=== PATIENT | female | born 1950 | race Caucasian/White ===

== ENCOUNTER → 2021-03-26 14:11 | Outpatient (BNVA) | payer MEDICARE, OTHER, SELFPAY | PROVIDERS: PCP Family Medicine; Visit Provider Nurse Practitioner Family | DX: M79.2 Neuralgia and neuritis, unspecified (principal); M79.605 Pain in left leg; M47.816 Spondylosis without myelopathy or radiculopathy, lumbar region | CPT/HCPCS: 99202 ==

== ENCOUNTER 2021-05-21 09:00 | Outpatient (REF) | payer MEDICARE, OTHER, SELFPAY ==
--- NOTE | 2021-05-21 09:06 | EMG_ITS ---
Left tibial and peroneal motor studies were performed. Left sural and superficial sensory studies were performed. Tibial H-reflex was obtained. Paraspinal muscles were tested with a needle. 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 There was no evidence of acute or active radiculopathy. MD GIUSEPPE Goldberg/[facility] / [id number]
== END 2021-05-21 09:01 | disposition home or self-care (01) ==
LOC: HO.NEURO 09:00
PROVIDERS: Visit Provider Nurse Practitioner Family
DX: M79.2 Neuralgia and neuritis, unspecified (principal); M79.605 Pain in left leg
CPT/HCPCS: 95886; 95909

== ENCOUNTER → 2021-05-29 14:28 | Outpatient (BNVA) | payer MEDICARE, OTHER, SELFPAY | PROVIDERS: PCP Family Medicine; Visit Provider Nurse Practitioner Family | DX: Z13.89 Encounter for screening for other disorder (principal) | CPT/HCPCS: Q3014 ==

== ENCOUNTER → 2021-06-29 14:33 | Outpatient (BNVA) | payer MEDICARE, OTHER, SELFPAY | PROVIDERS: PCP Family Medicine; Visit Provider Nurse Practitioner Family | DX: M48.062 Spinal stenosis, lumbar region with neurogenic claudication (principal); M54.16 Radiculopathy, lumbar region; M47.816 Spondylosis without myelopathy or radiculopathy, lumbar region | CPT/HCPCS: 99212 ==

== ENCOUNTER 2021-10-21 06:00 | Outpatient (REF) | payer MEDICARE, OTHER, SELFPAY ==
--- NOTE | ~2021-10-21 | FL_ITS ---
EXAMINATION: XR FLUOROSCOPY WITH IMAGES CLINICAL INFORMATION: Spinal stenosis, lumbar region COMPARISON: None. TECHNIQUE: Fluoroscopy performed by Dr. Alcides Richards. Fluoroscopy time: 0.3 minutes. Cumulative Dose: 13.1 mGy. DAP: 1.95 Gy-cm2. Images: 3. FINDINGS: Radiopaque needle overlies the lumbar spine on multiple images. FL/FL guidance in treatment room IMPRESSION: Fluoroscopic guidance for lumbar intervention. Please refer to procedural report for further information.
== END 2021-10-21 06:01 | disposition home or self-care (01) ==
LOC: HO.RADIR 06:00
PROVIDERS: Visit Provider Internal Medicine
DX: M48.062 Spinal stenosis, lumbar region with neurogenic claudication (principal); M54.16 Radiculopathy, lumbar region
CPT/HCPCS: 62323; J1040